=== PATIENT | female | born 1980 | race Caucasian/White ===

== ENCOUNTER 2016-11-02 18:42 | Emergency (ER) | payer BC ==
[2016-11-02 18:49] VITALS: BP 115/72; PULSE 80; TEMP 100; BMI 26.2
[2016-11-02] MEDS ORDERED: ACETAMINOPHEN 500 MG TABLET (FP) PO ONE (19:19)
--- NOTE | 2016-11-02 19:20 | PDOC ---
History of Present Illness - General History Source: Patient Exam Limitations: No Limitations - History of Present Illness Initial Comments: 11/02/16 19:31 Patient is a 36 year old female with a significant past medical history of Pre- Diabetes who presents to the ED with complaints of sore throat beginning wednesday afternoon. Patient reports cold like symptoms developing wednesday, stating an intensity of symptoms everyday and worsening this morning. She reports feeling malaise today secondary to sore throat. 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 Patient states she feels like sickness is radiating from throat. Patient reports slight fever secondary to sore throat. Denies chills, sweating. Denies chest pain, SOB. Denies vomiting,urinary problems, Diarrhea, constipation. Denies any other symptoms. Allergies: None Social history: No smoking. No alcohol. No substance abuse. Surgical history: None PMD: Dr. Manriquez <Edgardo Bautista - Last Filed: 11/02/16 19:30> <Ileana Granado - Last Filed: 11/02/16 20:54> - General History Source: Patient Exam Limitations: No Limitations <Thuy Bruno - Last Filed: 11/03/16 14:50> - General Chief Complaint: Sore Throat Stated Complaint: COLD SYMPTOMS Time Seen by Provider: 11/02/16 18:58 Past History <Edgardo Bautista - Last Filed: 11/02/16 19:30> <Ileana Granado - Last Filed: 11/02/16 20:54> - Past Medical History Diabetes: Yes - Psycho/Social/Smoking Cessation Hx Suicidal Ideation: No Smoking History: Never smoked Information on smoking cessation initiated: No <Thuy Bruno - Last Filed: 11/03/16 14:50> - Past Medical History Allergies/Adverse Reactions: Allergies Allergy/AdvReac Type Severity Reaction Status Date / Time No Known Allergies Allergy Verified 11/02/16 18:49 Home Medications: Ambulatory Orders Metformin HCl 500 mg PO ASDIR 11/02/16 Oseltamivir Phosphate [Tamiflu -] 75 mg PO BID #10 capsule 11/03/16 Review of Systems - Review of Systems Able to Perform ROS?: Yes Comments:: 11/02/16 19:31 GENERAL/CONSTITUTIONAL: + Malaise + Fever. + chills + Weakness. + Muscle aches HEAD, EYES, EARS, NOSE AND THROAT: + Sore throat with post nasal drainage. No change in vision. No ear pain or discharge. GASTROINTESTINAL: No nausea, vomiting, diarrhea or constipation. GENITOURINARY: No dysuria, frequency, or change in urination. CARDIOVASCULAR: No chest pain or shortness of breath. RESPIRATORY: + Moist non productive cough No, wheezing, or hemoptysis. MUSCULOSKELETAL: No joint or muscle swelling or pain. No neck or back pain. SKIN: No rash NEUROLOGIC: + Sinus headache. No vertigo, loss of consciousness, or change in strength/sensation. ENDOCRINE: No increased thirst. No abnormal weight change. HEMATOLOGIC/LYMPHATIC: No anemia, easy bleeding, or history of blood clots. ALLERGIC/IMMUNOLOGIC: No hives or skin allergy. All Other Systems: Reviewed and Negative <Edgardo Bautista - Last Filed: 11/02/16 19:30> *Physical Exam - Vital Signs Last Vital Signs Temp Pulse Resp BP Pulse Ox 100 F H 80 18 115/72 100 11/02/16 18:47 11/02/16 18:47 11/02/16 18:47 11/02/16 18:47 11/02/16 18:47 - Physical Exam Comments: 11/02/16 19:31 GENERAL:+ Mild distress Awake, alert, and fully oriented, HEAD: No signs of trauma EYES: PERRLA, EOMI: +Frontal sinus tenderness and fullness. sclera anicteric, conjunctiva clear ENT: + congested bilateral, landmarks easily visualised. + Pharynx pink with copious post drainage with clear white. Auricles normal inspection, hearing grossly normal, nares patent, oropharynx clear without exudates. Moist mucosa NECK: Normal ROM, supple, tender lymphadenopathy bilateral., JVD, or masses LUNGS: + Coarse Breath sounds. No wheezes, and no crackles HEART: Regular rate and rhythm, normal S1 and S2, no murmurs, rubs or gallops ABDOMEN: Soft, nontender, normoactive bowel sounds. No guarding, no rebound. No masses EXTREMITIES: Normal range of motion, no edema. No clubbing or cyanosis. No cords, erythema, or tenderness NEUROLOGICAL: Cranial nerves II through XII grossly intact. Normal speech, normal gait SKIN: Warm, Dry, normal turgor, no rashes or lesions noted. <Edgardo Bautista - Last Filed: 11/02/16 19:30> - Vital Signs Last Vital Signs Temp Pulse Resp BP Pulse Ox 100 F H 80 18 115/72 100 11/02/16 18:47 11/02/16 18:47 11/02/16 18:47 11/02/16 18:47 11/02/16 18:47 <Ileana Granado - Last Filed: 11/02/16 20:54> - Vital Signs Last Vital Signs Temp Pulse Resp BP Pulse Ox 100 F H 80 18 115/72 100 11/02/16 18:47 11/02/16 18:47 11/02/16 18:47 11/02/16 18:47 11/02/16 18:47 <Thuy Bruno - Last Filed: 11/03/16 14:50> ED Treatment Course - Medications Given in the ED: ED Medications Discontinued Medications Generic Name Dose Route Start Last Admin Trade Name Freq PRN Reason Stop Dose Admin Acetaminophen 650 mg 11/02/16 19:19 11/02/16 19:24 Tylenol - PO 11/02/16 19:20 650 mg ONCE ONE Administration <Edgardo Bautista - Last Filed: 11/02/16 19:30> - ADDITIONAL ORDERS Additional order review: Laboratory Results 11/02/16 19:43 Urine HCG, Qual Negative 11/02/16 19:21 Influenza Types A,B Antigen (CARLEEN) - Final Nasopharyngeal Swab - Preliminary - Medications Given in the ED: ED Medications Discontinued Medications Generic Name Dose Route Start Last Admin Trade Name Freq PRN Reason Stop Dose Admin Acetaminophen 650 mg 11/02/16 19:19 11/02/16 19:24 Tylenol - PO 11/02/16 19:20 650 mg ONCE ONE Administration <Ileana Granado - Last Filed: 11/02/16 20:54> *DC/Admit/Observation/Transfer - Attestations Scribe Attestion: 11/02/16 19:32 Documentation prepared by Edgardo Bautista, acting as medical record specialist for Thuy Bruno, ANDREA. <Edgardo Bautista - Last Filed: 11/02/16 19:30> <Ileana Granado - Last Filed: 11/02/16 20:54> - Discharge Dispostion Admit: No <Thuy Bruno - Last Filed: 11/03/16 14:50> Diagnosis at time of Disposition: Influenza B - Discharge Dispostion Disposition: HOME Condition at time of disposition: Stable - Prescriptions Prescriptions: Oseltamivir Phosphate [Tamiflu -] 75 mg PO BID #10 capsule - Referrals Referrals: Khadijah Manriquez MD [Primary Care Provider] - - Patient Instructions Printed Discharge Instructions: DI for Viral Upper Respiratory Infection -- Adult, DI for Influenza -- Adult Additional Instructions: -Rest, drink lots of fluids: Teas, water, soups, Pedialyte Saltwater gargles Steamy showers/seem to face break up mucus Avoid contact with others until fevers and cough resolved Lots of handwashing and good hygiene Continue [id number] medications for symptomatic relief Tylenol or Motrin for fever and pain All Marti tomorrow at between 2 and 4 PM he if there are preliminary results for strep test Followup with private physician in one to 2 days as needed Return to emergency department for worsened symptoms, fevers, dehydration - Post Discharge Activity Work/School Note: Back to Work
[2016-11-02] MEDS ORDERED: ACETAMINOPHEN 325 MG TABLET (FP) ONE (19:22)
== END 2016-11-02 20:59 | disposition home or self-care (01) ==
LOC: JERFT 18:42
DX: J10.1 Influenza due to other identified influenza virus with other respiratory manifestations (principal); J06.9 Acute upper respiratory infection, unspecified
CPT/HCPCS: 84703; 87070; 87430; 87804; 99281-25

== ENCOUNTER 2022-02-27 08:17 | Emergency (ER) | payer OTHER, BC ==
[2022-02-27 08:36] VITALS: BP 121/72; PULSE 70; RESP 18; TEMP 98.4; BMI 26.6
[2022-02-27] MEDS ORDERED: KETOROLAC TROMETHAMINE 30 MG/1 ML VIAL ONE (08:58)
[2022-02-27] MEDS ORDERED: METHOCARBAMOL 500 MG TABLET ONE (08:58)
[2022-02-27] MEDS ORDERED: KETOROLAC TROMETHAMINE 30 MG/1 ML VIAL IM ONE (09:04)
[2022-02-27] MEDS ORDERED: METHOCARBAMOL 500 MG TABLET PO ONE (09:04)
== END 2022-02-27 10:53 | disposition home or self-care (01) ==
LOC: JER 08:17 → JERFT 08:17
PROC: 3E023GC Introduction of Other Therapeutic Substance into Muscle, Percutaneous Approach (ICD-10-PCS; principal; 2022-02-27)
DX: M54.50 Low back pain, unspecified (principal)
CPT/HCPCS: 72100-TC-FY; 99284-25

== ENCOUNTER 2023-06-12 10:14 | Emergency (ER) | payer BC ==
[2023-06-12 10:24] VITALS: BP 110/70; PULSE 76; RESP 18; TEMP 98; BMI 25.0
[2023-06-12] MEDS ORDERED: ACETAMINOPHEN INJECTION 100 ML IVPB ONE (11:12)
[2023-06-12] MEDS: SODIUM CHLORIDE 0.9% 500 ML INFUS.BAG IV ONE (11:25)
[2023-06-12] MEDS: ACETAMINOPHEN 1000 MG/100 ML BAG IVPB ONE (11:25)
[2023-06-12 11:41] LABS: BASO % 0.4 % (0-2.0); EOS % 0.1 % (0-4.5); HEMATOCRIT 41.1 % (32.4-45.2); HEMOGLOBIN 13.4 GM/dL (10.7-15.3); LYMPH % 7.6 % (8-40); MCH 29.7 pg (25.7-33.7); MCHC 32.5 g/dl (32.0-36.0); MEAN CELL VOLUME 91.4 fl (80-96); MONO % 2.9 % (3.8-10.2); PLATELET COUNT 239 10^3/uL (134-434); RDW 13.3 % (11.6-15.6); WHITE BLOOD COUNT 11.6 K/mm3 (4.0-10.0)
[2023-06-12 12:09] LABS: POTASSIUM 4.2 mmol/L (3.5-5.1)
[2023-06-12 12:12] LABS: ALBUMIN 3.8 g/dl (3.4-5.0)
[2023-06-12 12:15] LABS: BILIRUBIN,TOTAL 0.5 mg/dL (0.2-1); CREATININE 0.7 mg/dL (0.55-1.3); TOT PROT 7.4 g/dl (6.4-8.2)
== END 2023-06-12 14:30 | disposition home or self-care (01) ==
LOC: JER 10:14
PROC: 3E033NZ Introduction of Analgesics, Hypnotics, Sedatives into Peripheral Vein, Percutaneous Approach (ICD-10-PCS; principal; 2023-06-12)
DX: A09 Infectious gastroenteritis and colitis, unspecified (principal); K64.8 Other hemorrhoids; K92.1 Melena
CPT/HCPCS: 36415; 74177-TC; 80053; 82272; 82962; 84703; 85025; 99285-25; J0131; Q9967